=== PATIENT | male | born 1960 | race Caucasian/White ===

== ENCOUNTER 2018-09-19 09:53 | Inpatient (IN) | payer OTHER ==
[2018-09-16 16:32] VITALS: Ht 170.2 cm; Wt 88.5 kg
[2018-09-19] VITALS (22 sets, daily range): BP systolic 108–138; BP diastolic 69–84; PULSE 76–100; RESP 12–20
[~2018-09-19] VITALS: Ht 170.2 cm; Wt 88.5 kg
[2018-09-19] MEDS ORDERED: BUPIVACAINE 0.5%/EPI (SDV) 30 ML INJ ONE (11:30)
[2018-09-19] MEDS ORDERED: SURGIFOAM POWDER 1 GM KIT ONE (11:30)
[2018-09-19] MEDS ORDERED: CEFAZOLIN 1 GM INJ ONE ×2 (11:31→15:37)
[2018-09-19] MEDS ORDERED: CA CHLORIDE (GM) 10% 10 ML INJ ONE (11:31)
[2018-09-19] MEDS ORDERED: THROMBIN (BOVINE) 5,000 UNIT VIAL TP ONE (11:31)
[2018-09-19] MEDS ORDERED: HEPARIN 1000 UNITS/ML 10 ML INJ ONE (11:31)
--- NOTE | 2018-09-19 11:46 | PREAC ---
Date/Time of Note Date/Time of Note DATE: 09/19/18 TIME: 11:43 Anesthesia Eval and Record Evaluation Time Pre-Procedure Interview DATE: 09/19/18 TIME: 11:43 Age 58 Sex male NPO: 8 hrs Preoperative diagnosis L2-S1 Lumbar stenosis Planned procedure L2-S1 Laminectomy, microdiscectomy Past Medical History Past Medical History: Includes Cardio: HTN, Dyslipidemia Musculoskeletal: Osteoarthritis GI: Morbid obesity Surgery & Anesthesia Issues No known issue Meds Anticoagulation: No Beta Smita within 24 hr: No Reason Beta Smita not given: Pt. not on B-Smita Meds reviewed: Yes Allergies Coded Allergies: No Known Allergies (Verified Allergy, Unknown, 09/16/18) Allergies Reviewed: Yes Labs/Studies Labs Reviewed: Reviewed by anesthesiologist test: N/A Studies: ECG Pre-procedure Exam Last vitals Vital Signs Date Temp Pulse Resp B/P (MAP) Pulse Ox O2 O2 Flow FiO2 Time Delivery Rate 09/19/18 97.7 94 16 126/79 94 Room Air 10:36 (95) Airway: Adequate mouth opening, Adequate thyromental dist Mallampati: Mallampati III Teeth: Normal Lung: Normal Heart: Normal ASA Physical Status ASA physical status: 3 Emergency: None Planned Anesthetic General/MAC: ETT Planned Pain Management Parenteral pain med Pre-operative Attestations Prior to commencing anesthesia and surgery, the patient was re-evaluated, there was verification of: *The patient's identity *The results of appropriate recent lab work and preoperative vital signs *The above evaluation not changing prior to induction *Anesthetic plan, risk benefits, alternative and complications discussed with patient/family; questions answered; patient/family understands, accepts and wishes to proceed. JOSEPH CONTI MD Sep 19, 2018 11:46
[2018-09-19] MEDS ORDERED: MIDAZOLAM 1 MG/ML 2 ML INJ ONE (11:51)
--- NOTE | 2018-09-19 12:29 | HPN ---
Date/Time of Note Date/Time of Note DATE: 09/19/18 TIME: 12:29 Interval H&P Admission Note Pt. seen H&P reviewed: No system changes KENNETH FRY MD Sep 19, 2018 12:29
[2018-09-19] MEDS ORDERED: FENTAnyl 50 MCG/ML VIAL ONE (15:08)
[2018-09-19] MEDS ORDERED: BUPIVACAINE 0.25% (MPF) 30 ML INJ ONE (15:08)
[2018-09-19] MEDS ORDERED: ROCURONIUM 50 MG INJ ONE (15:35)
[2018-09-19] MEDS ORDERED: PROPOFOL 20 ML ONE (15:35)
[2018-09-19] MEDS ORDERED: LIDOCAINE 2% (SDV) 5 ML INJ ONE (15:35)
[2018-09-19] MEDS ORDERED: GLYCOPYRROLATE 0.4 MG INJ ONE (15:37)
[2018-09-19] MEDS ORDERED: ONDANSETRON 4 MG INJ ONE ×2 (15:37→16:10)
[2018-09-19] MEDS ORDERED: NEOSTIGMINE 3 MG/3 ML SYRINGE ONE (15:37)
[2018-09-19] MEDS: D5W-0.45 NACL + KCL 20 MEQ 1,000 ML IV SCH (15:43)
--- NOTE | 2018-09-19 15:43 | SIPON ---
Date/Time of Note Date/Time of Note DATE: 09/19/18 TIME: 15:40 Operative Report Preoperative Diagnosis Lumbar stenosis Postoperative Diagnosis Lumbar stenosis Operation/Procedure Performed Lumbar decompression Surgeon see signature line physiotherapist's assistant Veronique Munoz Anesthesia: general Estimated blood loss: 150 - 200 ml's Transfusion Required none Specimen Spinous process Grafts/Implants none Complications none KENNETH RFY MD Sep 19, 2018 15:43
[2018-09-19] MEDS ORDERED: DIPHENHYDRAMINE 25 MG CAP PO PRN (16:00)
[2018-09-19] MEDS ORDERED: DIPHENHYDRAMINE 50 MG INJ IV PRN ×2 (16:00→16:30)
[2018-09-19] MEDS ORDERED: NALOXONE (0.4 MG/ML) INJ IV PRN (16:00)
[2018-09-19] MEDS ORDERED: ACETAMINOPHEN 325 MG TAB PO PRN (16:00)
[2018-09-19] MEDS ORDERED: BISACODYL 10 MG SUPP PR PRN (16:00)
[2018-09-19] MEDS ORDERED: CEPASTAT LOZENGE MT PRN (16:00)
[2018-09-19] MEDS ORDERED: HYDROmorphONE 0.5 MG/0.5 ML SYG IV PRN (16:00)
--- NOTE | 2018-09-19 16:03 | PAC ---
Date/Time of Note Date/Time of Note DATE: 09/19/18 TIME: 16:03 Post-Anesthesia Notes Post-Anesthesia Note Last documented vital signs Vital Signs Date Temp Pulse Resp B/P (MAP) Pulse Ox O2 O2 Flow FiO2 Time Delivery Rate 09/19/18 99.2 16:00 09/19/18 94 16 126/79 94 Room Air 10:36 (95) Activity: WNL Respiratory function: WNL Cardiovascular function: WNL Mental status: Baseline Pain reasonably controlled: Yes Hydration appropriate: Yes Nausea/Vomiting absent: Yes Comments BP:112/65, P:90, Spo2:100%, T:99,7 JOSEPH CONTI MD Sep 19, 2018 16:03
[2018-09-19] MEDS: CEFAZOLIN 1 GM/50 ML (PMX) 50 ML IVPB SCH (16:13)
--- NOTE | 2018-09-19 16:20 | OPR ---
DATE OF OPERATION: 09/19/2018 PREOPERATIVE DIAGNOSES: Multilevel lumbar spinal degeneration and stenosis with radiculopathy and ne urogenic claudication. POSTOPERATIVE DIAGNOSES: Multilevel lumbar spinal degeneration and stenosis with radiculopathy and n eurogenic claudication. PROCEDURES: 1. L2 to L3, L3 to L4, L4 to L5, L5 to S1 decompression with decompression of L2, L3, L4, L5, S1 ner ve roots bilaterally. 2. Lateral localizing film x2. 3. Use of operative microscope. 4. Intraoperative neuromonitoring. PRIMARY SURGEON: Jhon Kendrick MD DOMESTIC CLEANER: Veronique Munoz PA-C NEED FOR MANAGER OF GLOBAL: During this spinal surgical procedure, my program support assistant was used to retract and protect the spinal nerves and dural sac. My program support assistant also employed the suction catheters to ev acuate blood from the surgical field to improve visualization of the neural structures. The assistan t was medically necessary to facilitate the completion of the surgery in a safe and expeditious [facility] r. [facility] regulations, as well as hospital bylaws, preclude the use of non-licensed [facility] care personnel, such as operating room technicians, to perform these functions. FINDINGS: Neuromonitoring at the start of the case revealed left L2 amplitude down 40%, right L2 justice n 60%, left L3 down 50%, right L3 down 40%, left L4 normal, right L4 down 50%, bilateral L5 down 50%, left S1 down 30%, right S1 down 60%. At the end of the case, nerve signals returned to normal. The patient had stenosis from L2 to the sacrum due to facet and ligamentum hypertrophy. ESTIMATED BLOOD LOSS: 150 mL. DRAINS: One. SPECIMENS: L2, L3, L4, L5 spinous process. COMPLICATIONS OF PROCEDURES: None. TYPE OF ANESTHESIA: General. ANESTHESIOLOGIST: Jai Thompson MD INDICATIONS FOR PROCEDURE: This 58-year-old gentleman with lumbar radiculopathy and neurogenic lavinia ication. He failed nonoperative measures; therefore, I recommended that he undergo the above procedu re. Preoperatively, we discussed risks, benefits and alternatives. He wished to proceed. DESCRIPTION OF PROCEDURE IN DETAIL: The patient was identified in the preoperative holding area, giv en Ancef antibiotics in the operating room where he was successfully placed under general anesthesia. Neuromonitoring leads were placed. Sequential compressive devices were applied. Justice catheter in troduced. Remote intraoperative neuromonitoring was performed by Dr. Lindsay from 11:43 until 15:4 0 on to include SSEP, MEP and EMG performed by hovelstay. The patient was taken to the operat ing table in prone position over a Satya frame. All bony prominences were well padded. The back wa s then prepped and draped in usual sterile fashion. Spinal needles were placed and lateral films wer e obtained to confirm the correct levels. Once this was confirmed, I injected skin and subcutaneous tissue with 0.25% Marcaine and epinephrine. Incision was then made from L2 to the sacrum. Incision was taken down to dorsal fascia, which was incised with Bovie cautery. I then subperiosteally dissec octaviano the lamina of L2, L3, L4, L5, S1 bilaterally. Kerrisons were placed and lateral films were obtai joseph to confirm the correct levels. Next, I performed a central decompressive laminectomy at L2 to L3 , L3 to L4, L4 to L5 and L5 to S1 using Kerrison punches and a Leksell rongeur. I removed the ligame ntum flavum. I decompressed the central canal. I decompressed the lateral recess and performed part ial medial facetectomies. I then decompressed the L2, L3, L4, L5 and S1 nerve roots bilaterally for stenosis. Once this was done, all nerve signals returned to normal. I then brought the microscope i n and examined the disk space, particularly on the left at L2 to L3 and on the right at L5 to S1. Th e area was decompressed. I do not see any extruded fragments; therefore, I elected to perform a micr odiskectomy. At this point, hemostasis was achieved with bipolar cautery and Surgifoam. Bone wax wa s placed on the bony edges. Valsalva maneuver was performed and there was no leak of CSF. The wound was then copiously irrigated. PPP and thrombin were injected over the dura distally. I passed an e pidural catheter through for which I injected 100 mcg of fentanyl mixed with 2 mL of Marcaine 0.25% p reservative-free and the catheter was pulled. I then removed the retractors and took the microscope and off the field. I closed the deep fascia with a #1 Stratafix suture. I closed subcutaneous tissu e with a 2-0 Vicryl stitch. A 4-0 Monocryl closure was then performed. Dermabond and sterile dressi ng were then applied. The patient was awakened from anesthesia and taken to the recovery room in sta ble condition. Lap, sponge and instrument counts were correct x2. There were no apparent complicati ons during the procedure. The patient will be admitted to [facility] for routine postoperative care to include pain co ntrol, neurovascular checks, antibiotics and physical therapy. Dictated By: JHON KENDRICK MD BB/NTS Conf#: [id number] DID#: [id number] CC: YRN TROTTER MD;*EndCC*
[2018-09-19] MEDS ORDERED: LABETALOL HCL 20MG INJ IV PRN (16:30)
[2018-09-19] MEDS ORDERED: FENTAnyl 50 MCG/ML VIAL IV PRN (16:30)
[2018-09-19] MEDS ORDERED: HYDROmorphONE 1 MG/5 ML IV SYRINGE IV PRN ×2 (16:30)
[2018-09-19] MEDS ORDERED: METOCLOPRAMIDE 10 MG INJ IV PRN (16:30)
[2018-09-19] MEDS ORDERED: hydrALAzine 20 MG INJ IV PRN (16:30)
[2018-09-19] MEDS ORDERED: ONDANSETRON 4 MG INJ IV PRN (16:30)
[2018-09-19] MEDS ORDERED: MEPERIDINE 25 MG INJ IV PRN (16:30)
[2018-09-19] MEDS: HYDROmorphONE 0.2 MG/ML PCA IV SCH (16:33)
--- NOTE | 2018-09-19 17:41 | PN ---
Date/Time of Note Date/Time of Note DATE: 09/19/18 TIME: 17:36 Assessment/Plan VTE Prophylaxis Risk score (from Ns)>0 risk: 6 SCD applied (from Ns): Yes Pharmacological prophylaxis: NA/contraindicated Pharm contraindication: surgical contra Lines/Catheters IV Catheter Type (from Nrsg): Peripheral IV Urinary Cath still in place: Yes Reason Cath still needed: urinary retention Subjective 24 Hr Interval Summary Free Text/Dictation 58 yr old man with very symptomatic spinal stenosis, pseudoclaudication, left leg and rt butt pain. seen in hospital room post op, alert, says no left leg pain, some rt leg discomfort. bustamante placed, vs ok history of hypertension took his lisinopril this am, other meds protonix and singulair for allergies.. otherwise healthy man. preop exam with positive slr and sl weakness left quad and ehl. post op good toe strength. lungs clear, hr reg, abd soft imp stable post op Exam/Review of Systems Exam Vitals Vital Signs Date Temp Pulse Resp B/P (MAP) Pulse Ox O2 O2 Flow FiO2 Time Delivery Rate 09/19/18 80 18 123/81 94 Room Air 17:03 (95) 09/19/18 99.2 16:00 Medications Medication Current Medications Potassium Chloride/Dextrose/ Sod Cl 1,000 ml @ 100 mls/hr Q10H IV ; Start 09/19/18 at 15:43 Tramadol HCl (Ultram) 50 mg Q4H PRN PO .PAIN 1-5; Start 09/19/18 at 16:00 Tramadol HCl (Ultram) 100 mg Q4H PRN PO .PAIN 6-10; Start 09/19/18 at 16:00 Hydromorphone HCl (Dilaudid) 0.2 mg Q1H PRN IV .BREAKTHROUGH PAIN; Start 09/19/18 at 16:00 Cefazolin Sodium 50 ml @ 100 mls/hr Q8H IVPB Last administered on 09/19/18at 16:13; Admin Dose 100 MLS/HR; Start 09/19/18 at 16:00; Stop 09/20/18 at 08:29 Bisacodyl (Dulcolax Supp) 10 mg DAILY PRN [place] .CONSTIPATION; Start 09/19/18 at 16:00 Docusate Sodium (Colace) 100 mg BID PO ; Start 09/19/18 at 21:00 Al Hydrox/Mg Hydrox/Simethicone (Mag-Al Plus) 15 ml Q6H PRN PO .CONSTIPATION/DYSPEPSIA; Start 09/19/18 at 16:00 Acetaminophen (Tylenol Tab) 650 mg Q4H PRN PO STARR OR TEMP GREATER THAN 101.3F; Start 09/19/18 at 16:00 Carisoprodol (Soma) 350 mg TID PRN PO .MUSCLE SPASMS; Start 09/19/18 at 16:00 Phenol (Cepastat Lozenge) 1 lozenge PRN PRN [place] .SORE THROAT; Start 09/19/18 at 16:00 Diphenhydramine HCl (Benadryl) 25 mg Q6H PRN PO .ITCHING; Start 09/19/18 at 16:00 Diphenhydramine HCl (Benadryl) 25 mg Q6H PRN IV .ITCHING; Start 09/19/18 at 16:00 Naloxone HCl (Narcan) 0.2 mg Q2M PRN IV .RR 8 BREATHS/MIN OR LESS; Start at 16:00 Hydromorphone HCl (Dilaudid AUTOMOTIVE PARTS COORDINATOR) AUTOMOTIVE PARTS COORDINATOR to be started in PACU Q4PCA IV Last administered on 09/19/18at 16:33; Admin Dose 6 MG; Start 09/19/18 at 16:00 Miscellaneous Information 1. Hold AUTOMOTIVE PARTS COORDINATOR at 1,000... AUTOMOTIVE PARTS COORDINATOR IV ; Start 09/19/18 at 16:00 Hydromorphone HCl (Dilaudid) 0.2 mg PACU PRN IV MILD PAIN 1-3; Start 09/19/18 at 16:30; Stop 09/19/18 at 21:00 Hydromorphone HCl (Dilaudid) 0.4 mg PACU PRN IV MOD PAIN 4-6; Start 09/19/18 at 16:30; Stop 09/19/18 at 21:00 Fentanyl (Sublimaze) 25 mcg PACU ORDER PRN IV MILD PAIN 1-3; Start 09/19/18 at 16:30; Stop 09/19/18 at 21:00 Ondansetron HCl (Zofran Inj) 4 mg PACU ORDER PRN IV NAUSEA/VOMITING Last administered on 2/18/19at 16:13; Admin Dose 4 MG; Start 09/19/18 at 16:30; Stop 09/19/18 at 21:00 Metoclopramide HCl (Reglan) 10 mg PACU ORDER PRN IV NAUSEA/VOMITING; Start 09/19/18 at 16:30; Stop 09/19/18 at 21:00 Labetalol HCl (Labetalol) 5 mg PACU ORDER PRN IV HIGH BLOOD PRESSURE; Start 09/19/18 at 16:30; Stop 09/19/18 at 21:00 Hydralazine HCl (Apresoline) 5 mg PACU ORDER PRN IV HIGH BLOOD PRESSURE; Start 09/19/18 at 16:30; Stop 09/19/18 at 21:00 Meperidine HCl (Demerol) 25 mg PACU ORDER PRN IV .RIGORS; Start 09/19/18 at 16:30; Stop 09/19/18 at 21:00 Diphenhydramine HCl (Benadryl) 25 mg PACU ORDER PRN IV .PRURITUS; Start 09/19/18 at 16:30; Stop 09/19/18 at 21:00 YRN TROTTER MD Sep 19, 2018 17:41
[2018-09-19] MEDS: DOCUSATE SODIUM 100 MG CAP PO SCH (21:00)
[2018-09-19] MEDS: ONDANSETRON 4 MG INJ IV PRN (23:13)
[2018-09-19] MEDS: traMADol 50 MG TAB PO PRN (23:13)
[2018-09-20] VITALS: BP 118/69; PULSE 81; RESP 18
[2018-09-20] MEDS: D5W-0.45 NACL + KCL 20 MEQ 1,000 ML IV SCH ×3 (00:16→21:10)
[2018-09-20] MEDS: CEFAZOLIN 1 GM/50 ML (PMX) 50 ML IVPB SCH ×2 (00:16→09:12)
[2018-09-20] MEDS: traMADol 50 MG TAB PO PRN (00:18)
[2018-09-20] MEDS: HYDROmorphONE 0.2 MG/ML PCA IV SCH ×2 (01:20→18:59)
[2018-09-20] MEDS: CARISOPRODOL 350 MG TAB PO PRN ×3 (04:14→21:00)
[2018-09-20] MEDS: ONDANSETRON 4 MG INJ IV PRN ×2 (06:16→13:34)
[2018-09-20 07:19] VITALS: BP 105/65; PULSE 82; RESP 18
[2018-09-20] MEDS: DOCUSATE SODIUM 100 MG CAP PO SCH ×2 (09:11→21:00)
--- NOTE | 2018-09-20 10:08 | PN ---
Date/Time of Note Date/Time of Note DATE: 09/20/18 TIME: 10:07 Assessment/Plan Lines/Catheters IV Catheter Type (from Nrsg): Peripheral IV Justice in Place (from Nrsg): Yes Assessment/Plan Assessment/Plan pod #1 doing well oob continue with pt and pain control Subjective 24 Hr Interval Summary minimal back pain Exam/Review of Systems Vital Signs Vitals Vital Signs Date Temp Pulse Resp B/P (MAP) Pulse Ox O2 O2 Flow FiO2 Time Delivery Rate 09/20/18 98.1 82 18 105/65 97 Nasal 07:19 (78) Cannula Intake and Output 09/19/18 09/19/18 09/20/18 1515:00 23:00 07:00 IntakeIntake Total 1400 ml 450 ml OutputOutput Total 545 ml 1300 ml BalanceBalance 855 ml -850 ml Exam Free Text/Dictation nvi Results Result Diagram: 09/20/18 0449 09/20/18 0449 KENNETH FRY MD Sep 20, 2018 10:08
--- NOTE | 2018-09-20 13:05 | PN ---
Date/Time of Note Date/Time of Note DATE: 09/20/18 TIME: 13:03 Assessment/Plan VTE Prophylaxis Risk score (from Ns)>0 risk: 4 SCD applied (from Ns): Yes SCD contraindicated: low risk/ambulating Pharmacological prophylaxis: heparin Lines/Catheters IV [facility]ter Type (from [facility]): Peripheral IV Urinary Cath still in place: No Assessment/Plan Problems: (1) Status post lumbar spine surgery for decompression of spinal cord Onset Date: ~ 09/19/2018 Status: Acute Comment: He has successfully postoperative and without complaints. Plan at this time is for standard rehabilitation date of care. There does not appear to be any untoward complications after surgery and he should do well and be a good rehabilitation candidate (2) Lumbar spinal stenosis Status: Chronic Comment: Improved postop Qualifiers: Neurogenic claudication status: with neurogenic claudication Qualified Codes: M48.062 - Spinal stenosis, lumbar region with neurogenic claudication (3) Essential hypertension Status: Chronic Comment: Stable on LINDSAY inhibitor therapy (4) Gastroesophageal reflux disease Status: Chronic Comment: Stable with long-term PPI therapy Qualifiers: Esophagitis presence: without esophagitis Qualified Codes: K21.9 - Gastro- esophageal reflux disease without esophagitis (5) Allergic rhinitis Status: Chronic Comment: Adequately controlled at this time Qualifiers: Allergic rhinitis seasonality: unspecified Result Diagram: 09/20/1844809/20/18448 Results 24hrs Laboratory Tests Test 09/20/18 04:49 09/20/18 08:03 White Blood Count 12.6 H Red Blood Count 4.78 Hemoglobin 15.2 Hematocrit 43.8 Mean Corpuscular Volume 91.6 Mean Corpuscular Hemoglobin 31.8 Mean Corpuscular Hemoglobin Concent 34.7 Red Cell Distribution Width 11.6 Platelet Count 205 Mean Platelet Volume 10.3 Immature Granulocytes % 0.300 Neutrophils % 85.1 H Lymphocytes % 7.4 L Monocytes % 7.0 Eosinophils % 0.0 Basophils % 0.2 Nucleated Red Blood Cells % 0.0 Immature Granulocytes # 0.040 H Neutrophils # 10.8 H Lymphocytes # 0.9 Monocytes # 0.9 Eosinophils # 0.0 Basophils # 0.0 Nucleated Red Blood Cells # 0.0 Sodium Level 139 Potassium Level 4.3 Chloride Level 97 Carbon Dioxide Level 27 Anion Gap 15 H Blood Urea Nitrogen 12 Creatinine 0.88 Est Glomerular Filtrat Rate mL/min > 60 Glucose Level 181 Calcium Level 8.8 Magnesium Level 1.9 Lab Scanned Report REFERENCE LAB Subjective 24 Hr Interval Summary Free Text/Dictation Patient very good mood. He reports that the symptoms in his legs are markedly improved from preop left is doing better in the right. He is aware of pain in the right lower back at the site of surgery. Constitutional: no complaints Respiratory: no complaints Cardiovascular: no complaints Gastrointestinal: no complaints Musculoskeletal: back pain Neurologic: other (Leg dysesthesias are improved) Exam/Review of Systems Exam Vitals Vital Signs Date Temp Pulse Resp B/P (MAP) Pulse Ox O2 O2 Flow FiO2 Time Delivery Rate 09/20/18 98.1 82 18 105/65 97 Nasal 07:19 (78) Cannula Intake and Output 09/19/18 09/19/18 09/20/18 1515:00 23:00 07:00 IntakeIntake Total 1400 ml 450 ml OutputOutput Total 545 ml 1300 ml BalanceBalance 855 ml -850 ml Constitutional: alert, oriented Neck: supple, non-tender Respiratory: clear to auscultation, normal air movement Cardiovascular: regular rate and rhythm, nl pulses Results Results 24hrs Laboratory Tests Test 09/20/18 04:49 09/20/18 08:03 White Blood Count 12.6 H Red Blood Count 4.78 Hemoglobin 15.2 Hematocrit 43.8 Mean Corpuscular Volume 91.6 Mean Corpuscular Hemoglobin 31.8 Mean Corpuscular Hemoglobin Concent 34.7 Red Cell Distribution Width 11.6 Platelet Count 205 Mean Platelet Volume 10.3 Immature Granulocytes % 0.300 Neutrophils % 85.1 H Lymphocytes % 7.4 L Monocytes % 7.0 Eosinophils % 0.0 Basophils % 0.2 Nucleated Red Blood Cells % 0.0 Immature Granulocytes # 0.040 H Neutrophils # 10.8 H Lymphocytes # 0.9 Monocytes # 0.9 Eosinophils # 0.0 Basophils # 0.0 Nucleated Red Blood Cells # 0.0 Sodium Level 139 Potassium Level 4.3 Chloride Level 97 Carbon Dioxide Level 27 Anion Gap 15 H Blood Urea Nitrogen 12 Creatinine 0.88 Est Glomerular Filtrat Rate mL/min > 60 Glucose Level 181 Calcium Level 8.8 Magnesium Level 1.9 Lab Scanned Report REFERENCE LAB Medications Medication Current Medications Potassium Chloride/Dextrose/ Sod Cl 1,000 ml @ 100 mls/hr Q10H IV Last administered on 09/20/18 00:16; Admin Dose 100 MLS/HR; Start 09/19/18 at 15:43 Tramadol HCl (Ultram) 50 mg Q4H PRN PO .PAIN 1-5 Last administered on 09/20/18at 00:18; Admin Dose 50 MG; Start 09/19/18 at 16:00 Tramadol HCl (Ultram) 100 mg Q4H PRN PO .PAIN 6-10; Start 09/19/18 at 16:00 Hydromorphone HCl (Dilaudid) 0.2 mg Q1H PRN IV .BREAKTHROUGH PAIN; Start 09/19/18 at 16:00 Bisacodyl (Dulcolax Supp) 10 mg DAILY PRN [place] .CONSTIPATION; Start 09/19/18 at 16:00 Docusate Sodium (Colace) 100 mg BID PO Last administered on 09/20/18at 09:11; Admin Dose 100 MG; Start 09/19/18 at 21:00 Al Hydrox/Mg Hydrox/Simethicone (Mag-Al Plus) 15 ml Q6H PRN PO .CONSTIPATION/DYSPEPSIA; Start 09/19/18 at 16:00 Acetaminophen (Tylenol Tab) 650 mg Q4H PRN PO STARR OR TEMP GREATER THAN 101.3F; Start 09/19/18 at 16:00 Carisoprodol (Soma) 350 mg TID PRN PO .MUSCLE SPASMS Last administered on 09/20/18 09:18; Admin Dose 350 MG; Start 09/19/18 at 16:00 Phenol (Cepastat Lozenge) 1 lozenge PRN PRN [place] .SORE THROAT; Start 09/19/18 at 16:00 Diphenhydramine HCl (Benadryl) 25 mg Q6H PRN PO .ITCHING; Start 09/19/18 at 16:00 Diphenhydramine HCl (Benadryl) 25 mg Q6H PRN IV .ITCHING; Start 09/19/18 at 16:00 Naloxone HCl (Narcan) 0.2 mg Q2M PRN IV .RR 8 BREATHS/MIN OR LESS; Start 09/19/18 at 16:00 Hydromorphone HCl (Dilaudid FINISHING MACHINE TENDER) FINISHING MACHINE TENDER to be started in PACU Q4PCA IV Last administered on 09/20/18at 01:20; Admin Dose 6 MG; Start 09/19/18 at 16:00 Miscellaneous Information 1. Hold FINISHING MACHINE TENDER at 1,000... FINISHING MACHINE TENDER IV ; Start 09/19/18 at 16:00 Ondansetron HCl (Zofran Inj) 4 mg Q6H PRN IV NAUSEA AND/OR VOMITING Last administered on 09/20/18at 06:16; Admin Dose 4 MG; Start 09/19/18 at 21:00 MENDEL SHAW MD Sep 20, 2018 13:05
[2018-09-20 14:47] VITALS: BP 105/64; PULSE 78; RESP 20
[2018-09-20] MEDS ORDERED: ZOLPIDEM 5 MG TAB PO PRN (20:00)
[2018-09-20 21:00] VITALS: BP 120/73; PULSE 84; RESP 18
[2018-09-20] MEDS: MONTELUKAST 10 MG TAB PO SCH (21:04)
[2018-09-21 02:12] VITALS: BP 124/81; PULSE 110; RESP 18
[2018-09-21] MEDS: PANTOPRAZOLE (EC) 40 MG TAB PO SCH (05:32)
[2018-09-21 07:40] VITALS: BP 118/68; PULSE 100; RESP 18
[2018-09-21] MEDS: D5W-0.45 NACL + KCL 20 MEQ 1,000 ML IV SCH ×2 (07:43→17:43)
[2018-09-21] MEDS: LISINOPRIL 5 MG TAB PO SCH (08:16)
[2018-09-21] MEDS: AL HYDROX/MG HYDROX/SIMETH 30 ML CUP PO PRN ×3 (08:16→20:28)
[2018-09-21] MEDS: DOCUSATE SODIUM 100 MG CAP PO SCH ×2 (08:16→20:27)
[2018-09-21] MEDS: LORATADINE 10 MG TAB PO SCH (08:17)
--- NOTE | 2018-09-21 09:30 | PN ---
Date/Time of Note Date/Time of Note DATE: 09/21/18 TIME: 09:27 Assessment/Plan VTE Prophylaxis Risk score (from Ns)>0 risk: 8 SCD applied (from [facility]): Yes Pharmacological prophylaxis: NA/contraindicated Pharm contraindication: surgical contra Lines/Catheters [facility] (from [facility] Peripheral IV Urinary Cath still in place: No Assessment/Plan Result Diagram: 09/21/1842709/21/18427 Results 24hrs Laboratory Tests Test 09/21/18 04:28 White Blood Count 7.9 # Red Blood Count 4.23 L Hemoglobin 13.6 L Hematocrit 39.8 L Mean Corpuscular Volume 94.1 Mean Corpuscular Hemoglobin 32.2 Mean Corpuscular Hemoglobin Concent 34.2 Red Cell Distribution Width 11.6 Platelet Count 164 Mean Platelet Volume 10.9 H Immature Granulocytes % 0.300 Neutrophils % 57.4 Lymphocytes % 27.5 Monocytes % 12.5 H Eosinophils % 1.8 Basophils % 0.5 Nucleated Red Blood Cells % 0.0 Immature Granulocytes # 0.020 Neutrophils # 4.6 Lymphocytes # 2.2 Monocytes # 1.0 H Eosinophils # 0.1 Basophils # 0.0 Nucleated Red Blood Cells # 0.0 Sodium Level 137 Potassium Level 3.7 Chloride Level 98 Carbon Dioxide Level 28 Anion Gap 11 Blood Urea Nitrogen 10 Creatinine 0.89 Est Glomerular Filtrat Rate mL/min > 60 Glucose Level 147 Calcium Level 8.2 L Magnesium Level 1.9 Subjective 24 Hr Interval Summary Free Text/Dictation awake and alert has been up with p.t. left leg sx markedly improved. bustamante out this am, no void yet. no bm. eating ok vs good lungs clear, abd soft, good ehl strength now Exam/Review of Systems Exam Vitals Vital Signs Date Temp Pulse Resp B/P (MAP) Pulse Ox O2 O2 Flow FiO2 Time Delivery Rate 09/21/18 97.4 100 18 118/68 93 07:40 (85) 09/20/18 Room Air 14:47 Intake and Output 09/20/18 09/20/18 09/21/18 1515:00 23:00 07:00 IntakeIntake Total 1530 ml 360 ml 1000 ml OutputOutput Total 300 ml 1100 ml 65 ml BalanceBalance 1230 ml -740 ml 935 ml Results Results 24hrs Laboratory Tests Test 09/21/18 04:28 White Blood Count 7.9 # Red Blood Count 4.23 L Hemoglobin 13.6 L Hematocrit 39.8 L Mean Corpuscular Volume 94.1 Mean Corpuscular Hemoglobin 32.2 Mean Corpuscular Hemoglobin Concent 34.2 Red Cell Distribution Width 11.6 Platelet Count 164 Mean Platelet Volume 10.9 H Immature Granulocytes % 0.300 Neutrophils % 57.4 Lymphocytes % 27.5 Monocytes % 12.5 H Eosinophils % 1.8 Basophils % 0.5 Nucleated Red Blood Cells % 0.0 Immature Granulocytes # 0.020 Neutrophils # 4.6 Lymphocytes # 2.2 Monocytes # 1.0 H Eosinophils # 0.1 Basophils # 0.0 Nucleated Red Blood Cells # 0.0 Sodium Level 137 Potassium Level 3.7 Chloride Level 98 Carbon Dioxide Level 28 Anion Gap 11 Blood Urea Nitrogen 10 Creatinine 0.89 Est Glomerular Filtrat Rate mL/min > 60 Glucose Level 147 Calcium Level 8.2 L Magnesium Level 1.9 Medications Medication Current Medications Potassium Chloride/Dextrose/ Sod Cl 1,000 ml @ 100 mls/hr Q10H IV Last administered on 09/20/18at 21:10; Admin Dose 100 MLS/HR; Start 09/19/18 at 15:43 Tramadol HCl (Ultram) 50 mg Q4H PRN PO .PAIN 1-5 Last administered on 09/20/18at 00:18; Admin Dose 50 MG; Start 09/19/18 at 16:00 Tramadol HCl (Ultram) 100 mg Q4H PRN PO .PAIN 6-10; Start 09/19/18 at 16:00 Hydromorphone HCl (Dilaudid) 0.2 mg Q1H PRN IV .BREAKTHROUGH PAIN; Start 09/19/18 at 16:00 Bisacodyl (Dulcolax Supp) 10 mg DAILY PRN RI .CONSTIPATION; Start 09/19/18 at 16:00 Docusate Sodium (Colace) 100 mg BID PO Last administered on 09/21/18at 08:16; Admin Dose 100 MG; Start 09/19/18 at 21:00 Al Hydrox/Mg Hydrox/Simethicone (Mag-Al Plus) 15 ml Q6H PRN PO .CONSTIPATION/DYSPEPSIA Last administered on 09/21/18at 08:16; Admin Dose 15 ML; Start 09/19/18 at 16:00 Acetaminophen (Tylenol Tab) 650 mg Q4H PRN PO STARR OR TEMP GREATER THAN 101.3F Last administered on 09/21/18 08:17; Admin Dose 650 MG; Start 09/19/18 at 16:00 Carisoprodol (Soma) 350 mg TID PRN PO .MUSCLE SPASMS Last administered on 09/20/18 21:00; Admin Dose 350 MG; Start 09/19/18 at 16:00 Phenol (Cepastat Lozenge) 1 lozenge PRN PRN MT .SORE THROAT; Start 09/19/18 at 16:00 Diphenhydramine HCl (Benadryl) 25 mg Q6H PRN PO .ITCHING; Start 09/19/18 at 16:00 Diphenhydramine HCl (Benadryl) 25 mg Q6H PRN IV .ITCHING; Start 09/19/18 at 16:00 Naloxone HCl (Narcan) 0.2 mg Q2M PRN IV .RR 8 BREATHS/MIN OR LESS; Start 09/19/18 at 16:00 Hydromorphone HCl (Dilaudid PROGRAM DEVELOPER) PROGRAM DEVELOPER to be started in PACU Q4PCA IV Last administered on 09/20/18 18:59; Admin Dose 6 MG; Start 09/19/18 at 16:00 Miscellaneous Information 1. Hold PROGRAM DEVELOPER at 1,000... PROGRAM DEVELOPER IV ; Start 09/19/18 at 16:00 Ondansetron HCl (Zofran Inj) 4 mg Q6H PRN IV NAUSEA AND/OR VOMITING Last administered on 09/20/18 13:34; Admin Dose 4 MG; Start 09/19/18 at 21:00 Pantoprazole (Protonix Tab) 40 mg DAILY@06 PO Last administered on 09/21/18 05:32; Admin Dose 40 MG; Start 09/21/18 at 06:00 Lisinopril (Zestril) 5 mg DAILY PO Last administered on 09/21/18 08:16; Admin Dose 5 MG; Start 09/21/18 at 09:00 Montelukast Sodium (Singulair) 10 mg HS PO Last administered on 09/20/18 21:04; Admin Dose 10 MG; Start 09/20/18 at 21:00 Loratadine (Claritin) 10 mg DAILY PO Last administered on 09/21/18at 08:17; Admin Dose 10 MG; Start 09/21/18 at 09:00 Zolpidem Tartrate (Ambien) 10 mg HS PRN PO INSOMNIA Last administered on 09/20/18at 21:01; Admin Dose 10 MG; Start 09/20/18 at 20:00 YRN TROTTER MD Sep 21, 2018 09:30
[2018-09-21] MEDS: traMADol 50 MG TAB PO PRN ×3 (09:35→18:03)
[2018-09-21 14:14] VITALS: BP 126/78; PULSE 82; RESP 18
--- NOTE | 2018-09-21 14:47 | PN ---
Date/Time of Note Date/Time of Note DATE: 09/21/18 TIME: 14:46 Assessment/Plan Lines/Catheters IV Catheter Type (from Nrsg): Peripheral IV [facility] in Place (from Nrsg): No Assessment/Plan Assessment/Plan POD #2 doing well anticipate D/C drain tomorrow anticipate D/C home tomorrow continue PT and ambulate Subjective 24 Hr Interval Summary notes improvement in leg pain Exam/Review of Systems Vital Signs Vitals Vital Signs Date Temp Pulse Resp B/P (MAP) Pulse Ox O2 O2 Flow FiO2 Time Delivery Rate 09/21/18 98.2 82 18 126/78 92 14:14 (94) 09/20/18 Room Air 14:47 Intake and Output 09/20/18 09/20/18 09/21/18 1515:00 23:00 07:00 IntakeIntake Total 1530 ml 360 ml 1000 ml OutputOutput Total 300 ml 1100 ml 65 ml BalanceBalance 1230 ml -740 ml 935 ml Exam Free Text/Dictation drain output 65cc - not yet able to remove exam unchanged Results Result Diagram: 09/21/18 0428 09/21/18 0428 RICARDA MCDONALD PA-C Sep 21, 2018 14:47
[2018-09-21 19:05] VITALS: BP 124/77; PULSE 86; RESP 20
[2018-09-21] MEDS: MONTELUKAST 10 MG TAB PO SCH (20:28)
[2018-09-22 02:25] VITALS: BP 117/68; PULSE 85; RESP 20
[2018-09-22] MEDS: D5W-0.45 NACL + KCL 20 MEQ 1,000 ML IV SCH (03:43)
[2018-09-22] MEDS: PANTOPRAZOLE (EC) 40 MG TAB PO SCH (06:08)
[2018-09-22] MEDS: traMADol 50 MG TAB PO PRN ×2 (06:24→10:37)
--- NOTE | 2018-09-22 07:54 | DS ---
Date/Time of Note Date/Time of Note DATE: 09/22/18 TIME: 07:53 Discharge Summary Admission/Discharge Info Admit Date/Time Sep 19, 2018 at 09:53 Discharge Date/Time September 22 Discharge Diagnosis Lumbar decompression Patient Condition: Good Procedures Lumbar decompression Hospital Course Patient was [facility] after undergoing lumbar decompression. By postoperative day 3 he was deemed stable for discharge with follow-up arranged with the undersigned Primary Care Provider Not On Staff Doctor Pending Labs Laboratory Tests Test 09/22/18 04:29 White Blood Count 7.2 10^3/ul (4.8-10.8) Red Blood Count 4.34 10^6/ul (4.70-6.10) Hemoglobin 13.8 g/dl (14.0-18.0) Hematocrit 40.2 % (42.0-52.0) Mean Corpuscular Volume 92.6 fl (82.0-101.0) Mean Corpuscular Hemoglobin 31.8 pg (29.0-33.0) Mean Corpuscular Hemoglobin Concent 34.3 g/dl (32.0-37.0) Red Cell Distribution Width 11.3 % (11.5-14.5) Platelet Count 179 10^3/UL (140-415) Mean Platelet Volume 10.8 fl (7.4-10.4) Immature Granulocytes % 0.400 % (0.001-0.429) Neutrophils % 58.0 % (39.0-77.0) Lymphocytes % 27.5 % (15.0-51.0) Monocytes % 10.3 % (0.0-11.0) Eosinophils % 3.1 % (0.0-7.0) Basophils % 0.7 % (0.0-2.0) Nucleated Red Blood Cells % 0.0 /100WBC (0.0-0.0) Immature Granulocytes # 0.030 10^3/ul (0.0-0.031) Neutrophils # 4.2 10^3/ul (1.6-7.5) Lymphocytes # 2.0 10^3/ul (0.8-2.9) Monocytes # 0.7 10^3/ul (0.3-0.9) Eosinophils # 0.2 10^3/ul (0.0-0.5) Basophils # 0.1 10^3/ul (0.0-0.1) Nucleated Red Blood Cells # 0.0 10^3/ul (0.0-0.0) Sodium Level 139 mmol/L (135-144) Potassium Level 4.2 mmol/L (3.5-5.1) Chloride Level 100 mmol/L (97-110) Carbon Dioxide Level 33 mmol/L (21-31) Anion Gap 6 (5-13) Blood Urea Nitrogen 9 mg/dl (7-20) Creatinine 0.77 mg/dl (0.61-1.24) Est Glomerular Filtrat Rate mL/min > 60 mL/min (>60) Glucose Level 101 mg/dl (70-220) Calcium Level 8.6 mg/dl (8.4-10.2) Magnesium Level 2.4 mg/dl (1.7-2.5) KENNETH FRY MD Sep 22, 2018 07:54
[2018-09-22 08:03] VITALS: BP 126/78; PULSE 94; RESP 18
[2018-09-22] MEDS: DOCUSATE SODIUM 100 MG CAP PO SCH (08:59)
[2018-09-22] MEDS: LISINOPRIL 5 MG TAB PO SCH (08:59)
[2018-09-22] MEDS: LORATADINE 10 MG TAB PO SCH (08:59)
== END 2018-09-22 11:36 | disposition home or self-care (01) | DRG 517 ==
LOC: REC 09:53 → MS1 17:24
PROVIDERS: ADMIT Specialist; ATTEND Specialist
PROC: 01NB0ZZ Release Lumbar Nerve, Open Approach (ICD-10-PCS; principal; 2018-09-19 12:00)
DX: M48.062 Spinal stenosis, lumbar region with neurogenic claudication (principal); M54.16 Radiculopathy, lumbar region; M48.07 Spinal stenosis, lumbosacral region; I10 Essential (primary) hypertension; K21.9 Gastro-esophageal reflux disease without esophagitis; J30.9 Allergic rhinitis, unspecified
CPT/HCPCS: 72020; 80048; 83735; 85025; 86999; 87086; 88304; 88311; 97116; 97161; 97530; J0690; J1170; J1644; J2250; J2405; J2710; J3010; J3480